=== PATIENT | male | born 1995 | race Caucasian/White ===

== ENCOUNTER 2023-01-10 02:36 | Emergency (ER) | payer BC ==
[~2023-01-10] VITALS: Ht 188 cm; Wt 97.5 kg
[2023-01-10 02:59] VITALS: BP_SYST 135; PULSE 113; RESP 16; TEMP 96.6; O2SAT 100
[2023-01-10] MEDS ORDERED: DIPHTH,PERTUSS(ACELL),TET VAC 0.5 ML VIAL (Tdap) I.M. ONE (04:30)
[2023-01-10 05:48] VITALS: BP_SYST 138; PULSE 111; RESP 17; TEMP 97; O2SAT 98
== END 2023-01-10 05:48 | disposition home or self-care (01) ==
LOC: SED 02:36
DX: S61.411A Laceration without foreign body of right hand, initial encounter (principal); F10.129 Alcohol abuse with intoxication, unspecified; Z79.899 Other long term (current) drug therapy; W22.8XXA Striking against or struck by other objects, initial encounter; Y93.89 Activity, other specified; Y92.89 Other specified places as the place of occurrence of the external cause; Y99.8 Other external cause status; Y90.6 Blood alcohol level of 120-199 mg/100 ml
CPT/HCPCS: 90715; 99283